=== PATIENT | female | born 1940 | race Caucasian/White ===

== ENCOUNTER 2020-12-23 08:24 | Emergency (ER) | payer MEDICARE, OTHER ==
[2020-12-23] MEDS ORDERED: Tetracaine HCl/PF 0.5% 4 ML Bottle EYERT ONE (08:28)
[2020-12-23] MEDS ORDERED: Balanced Salt Solution Ophth Irrig 30 ML Bottle EYERT ONE (08:28)
--- NOTE | 2020-12-23 08:42 | EDM.PDOC ---
ED HPI GENERAL MEDICAL PROBLEM - General Chief Complaint: Eye Problems Stated Complaint: Eye Irritation Time Seen by Provider: 12/23/20 08:25 Source of Information: Reports: Patient, Family (), Old Records ([facility] chart/EMR) History Limitations: Reports: No Limitations - History of Present Illness INITIAL COMMENTS - FREE TEXT/NARRATIVE: The patient was brought to the emergency room via private automobile by her for evaluation of 7/10 foreign body sensation in her right eye with the patient awaking with these symptoms at about 6:30 AM. She has been rubbing the eye frequently since that time and did also apply some hot packs on arrival with no improvement of her symptoms. No history of irrigation, ocular drainage, eye injury, possibility of previous unknown foreign body, etc. with no medications, including eyedrops, etc. taken to this point. The patient also denies any recent fever, cough, wheezing, dyspnea, etc.. No history of recent headaches, visual changes, diplopia, change in mental status, or other change in neurological status. The patient denies any chest pain/pressure, heart flutter, dizziness, orthostasis, orthopnea, diaphoresis, paresthesias, recent decreased exercise tolerance, or any other anginal-type symptoms. No recent history of abdominal pain, heartburn, nausea, diarrhea, melena, gross hematochezia, or any food intolerance, including fatty foods, etc.. Onset: Today, Unknown/Unsure Onset Date: 12/23/20 Onset Time: 06:30 Duration: Constant Location: Reports: Other (Right eye as above). Denies: Head, Face, Neck, Chest, Abdomen, Back, Upper Extremity, Left, Upper Extremity, Right, Radiates to Quality: Reports: Other (As above) Severity: Moderate Improves with: Reports: None Worsens with: Reports: None Context: Reports: Other (As above). 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 (see below) (As above) - Related Data Allergies Allergy/AdvReac Type Severity Reaction Status Date / Time No Known Allergies Allergy Verified 12/23/20 08:30 Home Meds: Home Meds Aspirin 81 mg PO DAILY 12/23/20 [History] Levothyroxine Sodium [Synthroid] 75 mcg PO ACBREAKFAST 12/23/20 [History] Metoprolol Succinate [Toprol XL] 25 mg PO DAILY 12/23/20 [History] Simvastatin [Zocor] 20 mg PO BEDTIME 12/23/20 [History] lisinopriL [Lisinopril] 5 mg PO DAILY 12/23/20 [History] Past Medical History HEENT History: Reports: Impaired Vision, Other (See Below) Other HEENT History: The patient does wear glasses. Cardiovascular History: Reports: Afib, Arrhythmia, CAD, Heart Murmur, High Cholesterol, Hypertension, PVD, Other (See Below). Denies: Cardiomyopathy, Heart Failure, [place], Syncope Other Cardiovascular History: Minimal coronary artery disease by heart catheterization on 12/31/2019. PSVT since 1999 with last episode on 07/26/2013. Persistent occasional PACs and PVCs. Apparent postoperative atrial fibrillation in 2009 with no current anticoagulation therapy and history of cardiac ablation in 2013 as below. Recurrent moderate to severe aortic valve stenosis with aortic valve replacement x2 as below. Dyslipidemia. Mild carotid occlusive disease. : 3 Para: 3 LMP (Approximate): Menopausal Musculoskeletal History: Reports: Arthritis, Osteoarthritis Endocrine/Metabolic History: Reports: Hyperthyroidism, Hypothyroidism, Other (See Below) Other Endocrine/Metabolic History: Borderline hyperthyroidism with arrhythmia as above and current hypothyroidism. - Infectious Disease History Infectious Disease History: Denies: Novel Coronavirus (With patient receiving the Moderna immunization x2 last on 10/09/2020.) - Past Surgical History Cardiovascular Surgical History: Reports: Cardiac Ablation, Valve Replacement, Other (See Below) Other Cardiovascular Surgeries/Procedures: Initial porcine aortic valve replacement on 01/06/2010 with postoperative atrial fibrillation as above. Subsequent transfemoral bovine aortic valve replacement on 02/07/2020. Cardiac ablation in 2013. - Past Imaging History Past Imaging History: Reports: Angiography (Heart catheterization on 12/31/2019), Cardiac Echo (Last echocardiogram postoperative on 02/08/2020 with previous evaluations on 07/20/2013 and 05/12/2012.), Carotid US (01/11/2020 and 09/05/2003.), Event Monitor (July 2013.), Stress Testing (Low level on 02/04/2010. Cardiolite stress test on 01/09/2000) Social & Family History - Family History Cardiac: Reports: Other (See Below) Other Cardiac Family History: Father with unknown type of heart disease. - Tobacco Use Tobacco Use Status *Q: Never Tobacco User Tobacco Use Within Last Twelve Months: No Used Tobacco, but Quit: No Smoking Cessation Information Provided To Patient: No Second Hand Smoke Exposure: No Second Hand Smoke Education Provided: No - Living Situation & Occupation Living situation: Reports: , with Family () ED ROS GENERAL - Review of Systems Review Of Systems: Comprehensive ROS is negative, except as noted in HPI. ED EXAM GENERAL W FULL EYE - Physical Exam Exam: See Below Exam Limited By: No Limitations General Appearance: Alert, WD/WN, No Apparent Distress Eye Exam: Bilateral Eye: EOMI, Normal Fundi, Normal Inspection (Negative fluorescein test with no evidence of foreign body in the right eye. No significant conjunctival injection, drainage, etc.), PERRL Eyelids: Bilateral: Normal Appearance Conjunctiva & Sclera: Bilateral: Normal Appearance Cornea Exam: Right: Examined with Flourescein, Bilateral: Normal Appearance Extraocular Movements: Bilateral: Intact Pupils: Normal Accommodation Pupillary Size: Bilateral: 6 mm Pupillary Reaction: Bilateral: Brisk Anterior Chamber: Bilateral: Normal Appearance Posterior Chamber: Bilateral: Normal Funduscopic Ears: Normal External Exam, Normal Canal, Hearing Grossly Normal, Normal TMs Nose: Normal Inspection, Normal Mucosa, No Blood Throat/Mouth: Normal Inspection, Normal Lips, Normal Teeth, Normal Gums, Normal Oropharynx, Normal Voice, No Airway Compromise. No: Dysphagia, Perioral Cyanosis Head: Atraumatic, Normocephalic, Other (Mild right periocular redness secondary to hot packs prior to arrival). No: Facial Swelling, Facial Tenderness, Sinus Tenderness Neck: Supple, Non-Tender, Full Range of Motion, Carotid Bruit (Mild bilateral carotid bruits versus transmitted heart sounds). No: Lymphadenopathy (L), Lymphadenopathy (R), Thyromegaly Respiratory/Chest: No Respiratory Distress, Lungs Clear, Normal Breath Sounds, No Accessory Muscle Use, Chest Non-Tender Cardiovascular: Normal Peripheral Pulses, Regular Rate, Rhythm, No Edema, No Gallop, No JVD, No Rub, Systolic Murmur (2/6 OLIVERIO of the aortic valve). No: Gallop/S3, Gallop/S4, Extra Beats GI/Abdominal: Normal Bowel Sounds, Soft, Non-Tender, No Organomegaly, No Distention, No Abnormal Bruit, No Mass. No: Guarding (Female) Exam: Deferred Rectal (Female) Exam: Deferred Back Exam: Normal Inspection, Full Range of Motion. No: CVA Tenderness (L), CVA Tenderness (R), Muscle Spasm Extremities: Normal Inspection, Normal Range of Motion, Non-Tender, Normal Capillary Refill, No Pedal Edema Neurological: Alert, Oriented, CN II-XII Intact, Normal Cognition, Normal Gait, No Motor/Sensory Deficits Psychiatric: Normal Affect, Normal Mood Skin Exam: Warm, Dry, Intact, Normal Color, No Rash. No: Diaphoretic, Wound/Incision Lymphatic: No Adenopathy ED EYE w/ Add Procedure - Eye Procedure Alcaine Drops Administered: Yes Eye Irrigated w/ Saline (ccs): 30 Course - Vital Signs Last Recorded V/S: Last Vital Signs Temp 37.0 C 12/23/20 08:25 Pulse 80 12/23/20 08:25 Resp 16 12/23/20 08:25 BP 151/64 H 12/23/20 08:25 Pulse Ox 96 12/23/20 08:25 Vital Signs - 24 hr 12/23/20 08:25 Temperature [ 37.0 C Temporal] Pulse, 80 Peripheral [ Pulse Oximetry] Respiratory 16 Rate Blood Pressure 151/64 H [Right Upper Arm] O2 Sat by Pulse 96 Oximetry - Orders/Labs/Meds Orders: Active Orders 24 hr Category Date Time Status Obtain Past Medical Record [OM.PC] Routine Oth 12/23/20 08:27 Active Labs: None Meds: Medications Discontinued Medications Generic Name Dose Route Start Last Admin Trade Name Owen PRN Reason Stop Dose Admin Balanced Salt Solution 30 ml 12/23/20 08:28 12/23/20 08:32 Balanced Salt Solution Ophth Irrig 30 Ml Bottle EYERT 12/23/20 08:29 30 ml ONETIME ONE Administration Tetracaine HCl 1 ml 12/23/20 08:28 12/23/20 08:32 Tetracaine Hcl/Pf 0.5% 4 Ml Bottle EYERT 12/23/20 08:29 1 applic ASDIRECTED ONE Administration - Radiology Interpretation Free Text/Narrative:: None Departure - Departure Time of Disposition: 08:52 Disposition: Home, Self-Care 01 Condition: Good Clinical Impression: Dyslipidemia, Hypothyroidism (acquired) Hypertension Qualifiers: Hypertension type: essential hypertension Qualified Code(s): I10 - Essential (primary) hypertension Aortic valve stenosis Qualifiers: Cardiac valve disease etiology: nonrheumatic Qualified Code(s): I35.0 - Nonrheumatic aortic (valve) stenosis Foreign body of right eye Qualifiers: Encounter type: initial encounter Qualified Code(s): T15.91XA - Foreign body on external eye, part unspecified, right eye, initial encounter - Discharge Information *PRESCRIPTION DRUG MONITORING PROGRAM REVIEWED*: Not Applicable *COPY OF PRESCRIPTION DRUG MONITORING REPORT IN PATIENT GISELL: Not Applicable Instructions: Eye Foreign Body, [id number] Referrals: Urszula Sutherland NP [Primary Care Provider] - Forms: ED Department Discharge Additional Instructions: 1. Follow up with your eye doctor and/or regular provider in 2-3 days as needed, if symptoms persist. Bring these discharge instructions with you to that visit. 2. You may use additional OTC artificial tears as needed as per label instructions with initial recommendation of using these drops every 2 hours for the first 24 hours. 3. Immediately after this visit verify that your cellular telephone's voicemail has been activated and is empty. Also verify that your home telephone's answering machine is operating properly and has space to receive messages. Note that it is sometimes necessary for us to be able to contact you at a later date to discuss your medical care. 4. Please remember that we are ALWAYS here for you and want to answer any q uestions you may have. Feel free to call the hospital any time and we call you back GREG. Sepsis Event Note (ED) - Evaluation Sepsis Screening Result: No Definite Risk - Focused Exam Vital Signs: Vital Signs Temp Pulse Resp BP Pulse Ox 12/23/20 08:25 37.0 C 80 16 151/64 H 96 - Problem List & Annotations (1) Foreign body of right eye SNOMED Code(s): 72949438 Code(s): T15.91XA - FOREIGN BODY ON EXTERNAL EYE, PART UNSP, RIGHT EYE, INIT Status: Acute Priority: High Onset Date: 12/23/20 Annotation/Comment:: Negative fluorescein test as above with foreign body not noted with Smith lamp, etc. Symptomatic relief as per discharge instructions. 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 Patient likely removed an eyelash or other minimal foreign body on her own with her eye rubbing earlier this morning. She is not wearing her glasses today. Qualifiers: Encounter type: initial encounter Qualified Code(s): T15.91XA - Foreign body on external eye, part unspecified, right eye, initial encounter (2) Dyslipidemia SNOMED Code(s): 071455662 Code(s): E78.5 - HYPERLIPIDEMIA, UNSPECIFIED Status: Chronic Priority: Medium Annotation/Comment:: Currently under therapy. (3) Hypothyroidism (acquired) SNOMED Code(s): 644020919 Code(s): E03.9 - HYPOTHYROIDISM, UNSPECIFIED Status: Chronic Priority: Medium Annotation/Comment:: Currently under therapy with no current symptoms. (4) Aortic valve stenosis SNOMED Code(s): 07189171 Code(s): I35.0 - NONRHEUMATIC AORTIC (VALVE) STENOSIS Status: Chronic Priority: High Annotation/Comment:: Note that the patient had a heart catheterization on 12/31/19, which confirmed absence of coronary artery disease, however significant recurrence of aortic valve stenosis. She did have her initial porcine aortic valve replacement on 01/16/10 with brief postoperative atrial fibrillation at that time, which did not require long-term Coumadin therapy. Successful transfemoral 23 core bovine valve aortic valve replacement on 02/07/20. Postoperative echocardiogram on 02/08/20 with sessile surgery as above. No evidence of cardiac ischemia, significant arrhythmia, etc. during today's evaluation. Qualifiers: Cardiac valve disease etiology: nonrheumatic Qualified Code(s): I35.0 - Nonrheumatic aortic (valve) stenosis (5) Hypertension SNOMED Code(s): 80105564 Code(s): I10 - ESSENTIAL (PRIMARY) HYPERTENSION Status: Chronic Priority: Medium Annotation/Comment:: Mildly elevated in the emergency room otherwise previously under good control by history. Qualifiers: Hypertension type: essential hypertension Qualified Code(s): I10 - Essential (primary) hypertension - Problem List Review Problem List Initiated/Reviewed/Updated: Yes - My Orders Last 24 Hours: My Active Orders 12/23/20 08:27 Obtain Past Medical Record [OM.PC] Routine - Assessment/Plan Last 24 Hours: My Active Orders 12/23/20 08:27 Obtain Past Medical Record [OM.PC] Routine Assessment:: As above Plan: As above. Extensive precautions were given to the patient and her , who are in agreement with the treatment plan. See Patient Instructions for further treatment and plan.
== END 2020-12-23 08:52 | disposition home or self-care (01) ==
LOC: LL.ED 08:24
DX: T15.91XA Foreign body on external eye, part unspecified, right eye, initial encounter (principal); I35.0 Nonrheumatic aortic (valve) stenosis; I10 Essential (primary) hypertension; E78.5 Hyperlipidemia, unspecified; E03.9 Hypothyroidism, unspecified; I48.91 Unspecified atrial fibrillation; I25.10 Atherosclerotic heart disease of native coronary artery without angina pectoris; M19.90 Unspecified osteoarthritis, unspecified site; Z79.82 Long term (current) use of aspirin; Z79.899 Other long term (current) drug therapy
CPT/HCPCS: 99283

== ENCOUNTER 2025-05-06 13:51 | Emergency (ER) | payer MEDICARE ==
[2025-05-06] MEDS: diphenhydrAMINE 50 MG/ML SDV IM ONE (14:10)
== END 2025-05-06 14:20 | disposition home or self-care (01) ==
LOC: LL.ED 13:51
DX: S60.561A Insect bite (nonvenomous) of right hand, initial encounter (principal); E03.9 Hypothyroidism, unspecified; E78.00 Pure hypercholesterolemia, unspecified; I10 Essential (primary) hypertension; Z79.82 Long term (current) use of aspirin; Z79.890 Hormone replacement therapy; W57.XXXA Bitten or stung by nonvenomous insect and other nonvenomous arthropods, initial encounter
CPT/HCPCS: 96372; 99283; J1200; 99284